=== PATIENT | male | born 1980 | race Caucasian/White ===

== ENCOUNTER 2018-05-24 10:43 | Emergency (ER) | payer OTHER ==
[~2018-05-24] VITALS: Ht 170.2 cm; Wt 74.8 kg
[2018-05-24 10:45] VITALS: BP_SYST 145
[2018-05-24] MEDS ORDERED: KETOROLAC TROMETHAMINE 60 MG/2 ML VIAL IM ONE ×2 (13:15)
[2018-05-24 13:39] VITALS: BP_SYST 137
== END 2018-05-24 13:32 | disposition home or self-care (01) ==
LOC: SED 10:43
DX: S83.92XA Sprain of unspecified site of left knee, initial encounter (principal); J45.909 Unspecified asthma, uncomplicated; I10 Essential (primary) hypertension; X50.9XXA Other and unspecified overexertion or strenuous movements or postures, initial encounter; Y93.89 Activity, other specified; Y92.89 Other specified places as the place of occurrence of the external cause; Y99.8 Other external cause status
CPT/HCPCS: 73564; 96372; 99283; J1885

== ENCOUNTER 2018-09-19 12:34 | Inpatient (IN) | payer OTHER ==
[~2018-09-19] VITALS: Ht 167.6 cm; Wt 80.3 kg
--- NOTE | 2018-09-19 12:34 | NUR ---
Patient to ER bed 1 to gown for evaluation. Side rails up.
[2018-09-19 12:35] VITALS: BP_SYST 135
--- NOTE | 2018-09-19 12:38 | NUR ---
ER Dr. NAVAS at bedside examining patient.
--- NOTE | 2018-09-19 12:42 | NUR ---
PATIENT CAME IN COMPLAINING OF SHORTNESS OF BREATH FROM CHEST PRESSURE. PATIENT STATES IT FEELS LIKE SOMEONE IS SITTING ON CHEST. PATIENT COMPLAINING OF PRESSURE MORE THAN PAIN. PATIENT STATES HIS HEART HURTS LITTLE. PATIENT STATES THE SOB STARTED LAST NIGHT BUT GOT WORST WHEN TODAY. PATIENT NOT COMPLAINING OF NAUSEA OR VOMITING. PATIENT ALERT AND ORIENTED X4.
[2018-09-19] MEDS ORDERED: ASPIRIN 81 MG TAB.CHEW PO ONE (12:45)
--- NOTE | 2018-09-19 13:06 | NUR ---
DR NAVAS AT BEDSIDE TALKING TO PATIENT.
[2018-09-19 13:08] LABS: BASOPHILS # (AUTO) 0.1 K/uL (0.0-0.2); EOSINOPHILS # (AUTO) 0.1 K/uL (0.0-0.4); EOSINOPHILS % (AUTO) 0.9 % (0.0-4.0); HEMATOCRIT 51.9 % (36-54); HEMOGLOBIN 17.6 g/dL (14.0-18.0); LYMPHOCYTES # (AUTO) 3.2 K/uL (1.0-5.5); LYMPHOCYTES % (AUTO) 34.5 % (20.5-51.5); MEAN CORPUSCULAR HEMOGLOBIN 30 pg (27-31); MEAN CORPUSCULAR HGB CONC 34 % (32-36); MEAN CORPUSCULAR VOLUME 90 fL (79.0-98.0); MONOCYTES # (AUTO) 0.6 K/uL (0.0-1.0); MONOCYTES % (AUTO) 6.2 % (1.7-9.3); NEUTROPHILS # (AUTO) 5.3 K/uL (1.8-7.7); NEUTROPHILS % (AUTO) 57.4 % (40.0-70.0); PLATELET COUNT (AUTO) 362 K/uL (130-430); RED CELL DISTRIBUTION WIDTH 13.4 % (9.0-15.0); WHITE BLOOD COUNT (AUTO) 9.2 K/uL (4.8-10.8)
[2018-09-19] MEDS ORDERED: DILTIAZEM HCL 25 MG/5 ML VIAL IVP ONE (13:15)
[2018-09-19 13:18] LABS: CALCIUM 10.1 mg/dL (8.4-11.0); CREATININE 1.07 mg/dL (0.55-1.30); POTASSIUM 3.9 mmol/L (3.5-5.1)
[2018-09-19 13:27] LABS: ALBUMIN 4.5 g/dL (3.4-4.8); TOTAL BILIRUBIN 0.9 mg/dL (0.0-1.0)
--- NOTE | 2018-09-19 13:55 | NUR ---
Patient will be admitted to care of DR LEONARDO. Admitted to TELE unit. Belongings list completed. Summary report printed. Report will be given at bedside.
--- NOTE | 2018-09-19 14:01 | NUR ---
Medication reconciliation completed with information provided by PATIENT. Any prior medication reconciliation on file was reviewed and corrected.
--- NOTE | 2018-09-19 14:02 | NUR ---
DISCUSSED END OF LIFE CARE WITH PATIENT. PATIENT STATES HE IS FULL CODE.
--- NOTE | 2018-09-19 14:17 | NUR ---
Cardiac consult paged: wendy Chauhan, regarding new onset AF, ordered by Dr. Myron Chauhan.
--- NOTE | 2018-09-19 14:34 | NUR ---
Transfer to TELE via ACLS protocol. Licensed nurse present. IV present no signs or symptoms of infiltration.
--- NOTE | 2018-09-19 14:42 | NUR ---
ADMISSION NOTE Received patient from ER via chanel, received report from Ivette DURÁN. Patient admitted with diagnosis of New onset A-Fib, Palpitation. Patient oriented to hospital routine, call light, toileting and safety-patient verbalized understanding.
--- NOTE | 2018-09-19 14:45 | NUR ---
OPENING NOTE patient received via gurney from ER, patient states he is still feeling pressure in his chest, assisted patient to use bathroom, patient ambulates with steady gait, no other acute distress or pain at this time, breathing is even and unlabored on room air, educated patient on plan of care and call light system, will continue to monitor, safety precautions in place, call light within reach.
[2018-09-19] MEDS ORDERED: LORazepam 2 MG/ML VIAL IVP PRN (15:15)
[2018-09-19] MEDS ORDERED: ONDANSETRON HCL 4 MG/2 ML VIAL IVP PRN (15:15)
[2018-09-19] MEDS ORDERED: HYDROcodone/ACETAMIN 10-325 MG TAB PO PRN (15:15)
[2018-09-19] MEDS ORDERED: HYDROcodone/ACETAMIN 5-325 MG TAB (NORCO/ VICODIN) PO PRN (15:15)
[2018-09-19 15:47] VITALS: BP_SYST 126
--- NOTE | 2018-09-19 16:05 | NUR ---
SPOKE TO DR. Apurva LEONARDO MD made aware of new patient condition, new orders received.
--- NOTE | 2018-09-19 17:10 | NUR ---
NOTES PATIENT IS RESTING IN BED TALKING TO , NO ACUTE DISTRESS OR PAIN NOTED, BREATHING IS EVEN AND UNLABORED ON ROOM AIR, WILL CONTINUE TO MONITOR, SAFETY PRECAUTIONS IN PLACE CALL LIGHT WITHIN REACH.
--- NOTE | 2018-09-19 18:56 | NUR ---
CLOSING NOTE PATIENT IS RESTING IN BED WATCHING TV, PATIENT DENIES ANY ACUTE DISTRESS OR PAIN, BREATHING IS EVEN AND UNLABORED ON ROOM AIR, ALL NEEDS WERE MET THROUGHOUT SHIFT, WILL ENDORSE REPORT TO ONCOMING NURSE, SAFETY PRECAUTIONS IN PLACE, CALL LIGHT WITHIN REACH.
--- NOTE | 2018-09-19 19:20 | NUR ---
OPENING NOTES Pt and endorsement received from day shift nurse. Pt is AAOX4, lying in bed while watching tv. Pt on saline lock on left AC G20. No complains of pain or discomfort at this time. No signs of acute distress or SOB noted. Encouraged to use call light when needed. Safety precautions in place with 2 side rails up, wheels locked and bed in lowest level. Call light with pt. Will continue to monitor.
[2018-09-19 20:02] VITALS: BP_SYST 121
[2018-09-19] MEDS: NORMAL SALINE 5 ML DISP.SYRIN IVF SCH (21:14)
[2018-09-19] MEDS: ACETAMINOPHEN 325 MG TABLET PO PRN (21:15)
--- NOTE | 2018-09-19 21:15 | NUR ---
TYLENOL 650MG GIVEN Pt complained of headache, Tylenol 650mg PO given as ordered. No signs of acute distress noted. Safety precautions in place and call light with pt. Will continue to monitor.
[2018-09-19] MEDS ORDERED: NORMAL SALINE 5 ML DISP.SYRIN IVF SCH (22:00)
[2018-09-19 23:53] VITALS: BP_SYST 122
--- NOTE | 2018-09-19 23:57 | NUR ---
ROUNDS Pt is resting in bed with both eyes closed, with visible chest rise and fall with unlabored breathing noted. No complains of pain and no signs of acute distress noted. No needs at this time. Safety precautions in place and call light with pt. Will continue to monitor.
--- NOTE | 2018-09-20 02:26 | NUR ---
ROUNDS Pt is resting in bed with both eyes closed, with visible chest rise and fall with unlabored breathing noted. No signs of acute distress noted. Safety precautions in place and call light with pt. Will continue to monitor.
--- NOTE | 2018-09-20 04:27 | NUR ---
ROUNDS Pt is resting in bed with both eyes closed, with visible chest rise and fall with unlabored breathing noted. No signs of acute distress noted. No needs at this time. Will continue to monitor.
[2018-09-20] MEDS: NORMAL SALINE 5 ML DISP.SYRIN IVF SCH ×2 (05:40→14:07)
--- NOTE | 2018-09-20 06:37 | NUR ---
CLOSING NOTES Pt is resting in bed with both eyes closed, with visible chest rise and fall with unlabored breathing noted. No signs of acute distress or SOB noted. No complains of pain or discomfort at this time. All needs attended throughout the shift. Safety precautions maintained with 2 side rails up, wheels locked, bed in lowest level. Call light with pt. Will endorse to day shift nurse.
[2018-09-20 07:47] LABS: BASOPHILS # (AUTO) 0.1 K/uL (0.0-0.2); BASOPHILS % (AUTO) 0.5 % (0.0-2.0); EOSINOPHILS # (AUTO) 0.1 K/uL (0.0-0.4); EOSINOPHILS % (AUTO) 1.3 % (0.0-4.0); HEMATOCRIT 56.5 % (36-54); HEMOGLOBIN 19.1 g/dL (14.0-18.0); LYMPHOCYTES # (AUTO) 3.6 K/uL (1.0-5.5); LYMPHOCYTES % (AUTO) 34.1 % (20.5-51.5); MEAN CORPUSCULAR HEMOGLOBIN 31 pg (27-31); MEAN CORPUSCULAR HGB CONC 34 % (32-36); MEAN CORPUSCULAR VOLUME 90 fL (79.0-98.0); MONOCYTES # (AUTO) 0.6 K/uL (0.0-1.0); MONOCYTES % (AUTO) 5.9 % (1.7-9.3); NEUTROPHILS # (AUTO) 6.1 K/uL (1.8-7.7); NEUTROPHILS % (AUTO) 58.2 % (40.0-70.0); PLATELET COUNT (AUTO) 341 K/uL (130-430); RED BLOOD CELL COUNT(AUTO) 6.28 MIL/uL (4.2-6.2); RED CELL DISTRIBUTION WIDTH 13.5 % (9.0-15.0); WHITE BLOOD COUNT (AUTO) 10.5 K/uL (4.8-10.8)
[2018-09-20 08:03] VITALS: BP_SYST 147
--- NOTE | 2018-09-20 08:10 | NUR ---
OPENING NOTE patient resting in bed A&O x4, patient receiving 2d echo at this time, patient denies any chest pressure, pain, or acute distress, breathing is even and unlabored on room air, educated patient on plan of care and call light system, will continue to monitor, safety precautions in place, call light within reach.
[2018-09-20 08:15] LABS: ANION GAP 12 (5-15); CALCIUM 9.9 mg/dL (8.4-11.0); CHLORIDE 101 mmol/L (98-107); CREATININE 1.08 mg/dL (0.55-1.30); GLUCOSE 85 mg/dL (70-99); PHOSPHORUS 3.9 mg/dL (2.7-4.5); POTASSIUM 3.5 mmol/L (3.5-5.1); SODIUM SERUM 139 mmol/L (136-145); THYROID STIMULATING HORMONE 5.35 uIu/mL (0.36-3.74); UREA NITROGEN, BLOOD 15 mg/dL (8-21)
[2018-09-20 08:17] LABS: GFR AFRICAN AMERICAN 97 mL/min (>90)
[2018-09-20] MEDS ORDERED: ASPIRIN 325 MG TABLET PO SCH (09:00)
--- NOTE | 2018-09-20 10:44 | NUR ---
NOTES patient is resting in bed watching tv, patient denies any acute distress or pain at this time, breathing is even and unlabored on room air, will continue to monitor, safety precautions in place, call light within reach.
[2018-09-20 12:02] VITALS: BP_SYST 139
[2018-09-20] MEDS: ACETAMINOPHEN 325 MG TABLET PO PRN (12:14)
--- NOTE | 2018-09-20 12:25 | NUR ---
NOTES patient is resting in bed watching tv with , patient given tylenol for headache, patient denies any other acute distress or pain, breathing is even and unlabored on room air, will continue to monitor, safety precautions in place, call light within reach.
[2018-09-20 16:10] VITALS: BP_SYST 136
--- NOTE | 2018-09-20 16:37 | NUR ---
NOTES patient is resting in bed, patient denies any acute distress or pain, gave patient ice packs for his knee, breathing even and unlabored on room air, will continue to monitor, safety precautions in place, call light within reach.
[2018-09-20 17:27] VITALS: BP_SYST 136
[2018-09-20] MEDS ORDERED: APIX5TAB PO (17:44)
[2018-09-20] MEDS ORDERED: METO25TA3 PO (17:45)
[2018-09-20] MEDS ORDERED: LOSA25TA3 PO (17:45)
[2018-09-20] MEDS ORDERED: LIP20 PO (17:46)
--- NOTE | 2018-09-20 18:25 | NUR ---
D/C Patient Patient given medication reconciliation form and D/C instructions. Exit Care provided. Patient verbalized understanding. MD discussed with patient the results and treatment provided. Ambulatory with steady gait for discharge to home. Patient in stable condition, ID band removed. IV catheter removed, intact and dressing applied, no active bleeding. Rx of METOPROLOL, LOSARTAN, ELIQUIS, AND LIPITOR given. Patient educated on pain management. All belongings sent with patient.
== END 2018-09-20 18:25 | disposition home or self-care (01) | DRG 309 ==
LOC: SED 12:34 → STU 13:55
PROVIDERS: ADMIT Preventive Medicine Preventive Medicine/Occupational Environmental Medicine; ATTEND Preventive Medicine Preventive Medicine/Occupational Environmental Medicine
DX: I48.91 Unspecified atrial fibrillation (principal); I24.9 Acute ischemic heart disease, unspecified; F12.90 Cannabis use, unspecified, uncomplicated; R07.89 Other chest pain; I10 Essential (primary) hypertension; J45.909 Unspecified asthma, uncomplicated; Z72.0 Tobacco use
CPT/HCPCS: 36415; 71045; 80048; 80053; 82550-TC; 83735-TC; 83880; 84100-TC; 84439; 84443-TC; 84484; 85025; 93005; 93306; 96374; 99285; G0378; J3490

== ENCOUNTER 2021-10-10 13:48 | Inpatient (IN) | payer BC, OTHER ==
[~2021-10-10] VITALS: Ht 167.6 cm; Wt 79.4 kg
[~2021-10-10 13:48] MED LIST: APIX5TAB PO; LIP20 PO; LOSA25TA3 PO; METO25TA3 PO
[2021-10-10 13:52] VITALS: BP_SYST 137
[2021-10-10] MEDS ORDERED: dilTIAZem HCL IVP 5 MG/ML VIAL IVP ONE ×2 (14:00→17:15)
[2021-10-10] MEDS ORDERED: NACL 0.9% 1,000 ML IV ONE (14:00)
[2021-10-10 14:13] LABS: BASOPHILS # (AUTO) 0.1 K/uL (0.0-0.2); BASOPHILS % (AUTO) 1.3 % (0.0-2.0); EOSINOPHILS # (AUTO) 0.3 K/uL (0.0-0.4); EOSINOPHILS % (AUTO) 2.8 % (0.0-4.0); HEMATOCRIT 47.5 % (36-54); HEMOGLOBIN 16.2 g/dL (14.0-18.0); LYMPHOCYTES # (AUTO) 3.6 K/uL (1.0-5.5); MEAN CORPUSCULAR HEMOGLOBIN 30 pg (27-31); MEAN CORPUSCULAR HGB CONC 34 % (32-36); MEAN CORPUSCULAR VOLUME 88 fL (79.0-98.0); MONOCYTES # (AUTO) 0.7 K/uL (0.0-1.0); MONOCYTES % (AUTO) 7.3 % (1.7-9.3); NEUTROPHILS # (AUTO) 4.7 K/uL (1.8-7.7); NEUTROPHILS % (AUTO) 50.6 % (40.0-70.0); PLATELET COUNT (AUTO) 312 K/uL (130-430); RED BLOOD CELL COUNT(AUTO) 5.42 MIL/uL (4.2-6.2); RED CELL DISTRIBUTION WIDTH 13.5 % (9.0-15.0); WHITE BLOOD COUNT (AUTO) 9.4 K/uL (4.8-10.8)
[2021-10-10 14:31] LABS: ANION GAP 7 (5-15); CALCIUM 9.1 mg/dL (8.4-11.0); CHLORIDE 103 mmol/L (98-107); CREATININE 1.16 mg/dL (0.55-1.30); GLUCOSE 87 mg/dL (70-99); POTASSIUM 3.6 mmol/L (3.5-5.1); SODIUM SERUM 137 mmol/L (136-145); UREA NITROGEN, BLOOD 12 mg/dL (8-21)
[2021-10-10 14:39] LABS: ALANINE AMINOTRANSFERASE 31 U/L (12-78); ALBUMIN 3.7 g/dL (3.4-4.8); ALCOHOL, BLOOD 3 mg/dL (<10); ASPARTATE AMINOTRANSFERASE 16 U/L (10-37); PHOSPHORUS 2.9 mg/dL (2.7-4.5); TOTAL BILIRUBIN 0.6 mg/dL (0.0-1.0)
[2021-10-10 14:44] LABS: GFR AFRICAN AMERICAN 88 mL/min (>90)
[2021-10-10] MEDS ORDERED: ASPIRIN 325 MG TABLET PO ONE (14:45)
[2021-10-10] MEDS ORDERED: MORPHINE 4 MG INJ. 4 MG/ML VIAL IVP ONE ×4 (14:45)
[2021-10-10] MEDS ORDERED: NITROGLYCERIN 0.4 MG TAB.SUBL SL ONE (14:45)
[2021-10-10] MEDS ORDERED: METOPROLOL SUCCINATE 25 MG TAB.SR.24H (TOPROL XL) PO SCH (17:30)
[2021-10-10] MEDS ORDERED: ASPI-989 (17:59)
[2021-10-10 19:50] VITALS: BP_SYST 134
[2021-10-10 20:00] VITALS: BP_SYST 134
[2021-10-10] MEDS: ATORVASTATIN 20 MG TABLET PO SCH (20:57)
[2021-10-10] MEDS: RIVAROXABAN 15 MG TABLET PO SCH (21:18)
[2021-10-11] VITALS: BP_SYST 116
[2021-10-11 04:00] VITALS: BP_SYST 125
[2021-10-11 07:45] LABS: CALCIUM 8.2 mg/dL (8.4-11.0); CREATININE 1.08 mg/dL (0.55-1.30); POTASSIUM 4.4 mmol/L (3.5-5.1)
[2021-10-11 08:00] VITALS: BP_SYST 110
[2021-10-11] MEDS: LOSARTAN POTASSIUM 25 MG TABLET PO SCH (08:16)
[2021-10-11] MEDS: METOPROLOL SUCCINATE 25 MG TAB.SR.24H (TOPROL XL) PO SCH (08:17)
[2021-10-11 08:19] LABS: ALBUMIN 3.1 g/dL (3.4-4.8); THYROID STIMULATING HORMONE 2.53 uIu/mL (0.36-3.74)
[2021-10-11] MEDS: RIVAROXABAN 15 MG TABLET PO SCH (17:33)
[2021-10-11 20:00] VITALS: BP_SYST 118
[2021-10-11] MEDS: ATORVASTATIN 20 MG TABLET PO SCH (20:55)
[2021-10-12] VITALS: BP_SYST 116
[2021-10-12 08:30] VITALS: BP_SYST 120
[2021-10-12] MEDS: LOSARTAN POTASSIUM 25 MG TABLET PO SCH (08:41)
[2021-10-12] MEDS: METOPROLOL SUCCINATE 25 MG TAB.SR.24H (TOPROL XL) PO SCH (08:42)
[2021-10-12 09:41] VITALS: BP_SYST 119
== END 2021-10-12 14:14 | disposition home or self-care (01) | DRG 310 ==
LOC: SED 13:48 → STU 16:12
PROVIDERS: ADMIT Family Medicine; ATTEND Family Medicine
DX: I48.0 Paroxysmal atrial fibrillation (principal); E78.5 Hyperlipidemia, unspecified; F17.290 Nicotine dependence, other tobacco product, uncomplicated; I11.9 Hypertensive heart disease without heart failure; Z20.822 Contact with and (suspected) exposure to COVID-19; Z79.899 Other long term (current) drug therapy
CPT/HCPCS: 36415; 71045; 80053; 83735; 84100; 84443; 84484; 85025; 93005; 93306; 96361; 96374; 96375; 96376; 99285; G0378; G0482; J2270; J3490